=== PATIENT | female | born 1985 | race Caucasian/White ===

== ENCOUNTER 2025-04-03 02:56 | Outpatient (CLI) | payer OTHER, SELFPAY ==
[2025-04-03 11:15] LABS: Abs Immature Grans 0.02 10^3/uL (0.0-0.06); HCT 41.0 % (36.0-46.0); HGB 13.4 g/dL (11.2-15.7); Immature Grans % 0.3 %; MCH 30.5 pg (27.0-33.0); MCHC 32.7 % (32.0-36.0); MCV 93 fL (80-95); MPV 9.5 fL (8.0-11.0); Platelet Count 288 10^3/uL (130-400); RBC 4.39 10^6/uL (3.93-5.22); RDW 11.6 % (11.7-14.6); RDW-SD 39.8 fL; WBC 6.71 10^3/uL (4.4-10.8)
== END 2025-04-03 02:57 | disposition home or self-care (01) ==
LOC: LBO 02:56
PROVIDERS: Visit Provider Obstetrics & Gynecology
DX: Z01.818 Encounter for other preprocedural examination (principal)
CPT/HCPCS: 36415; 86850; 86900; 86901; 85025

== ENCOUNTER 2025-04-04 07:53 | Day surgery (SDC) | payer OTHER, SELFPAY ==
--- NOTE | 2025-04-03 19:35 | W.ANESPRE ---
General Info Date of Service Date Performed: 04/04/25 Height: 5 ft 5 in Weight: 59.874 kg Body Mass Index (BMI): 21.9 Surgical Procedure: Operation Date: 04/04/25 09:10 Proposed Procedure Side Surgeon p Salpingectomy Laparoscopic Bilateral Kika Gaston DO Meds Allergies and Home Medications Allergies Allergy/AdvReac Type Severity Reaction Status Date / Time erythromycin base AdvReac Intermediate Other (See Verified 04/04/25 08:10 Comment) Home Medication ?Medication ?Instructions ?Recorded Bacillus coagulans 10 billion cell 10 cell PO DAILY 09/12/24 capsule,delayed release (Probiotic (B. coagulans)) omega-3 fatty acids 500 mg capsule 500 mg PO DAILY 09/12/24 psyllium husk 0.4 gram capsule 0.4 g PO DAILY 09/12/24 (Daily Fiber) norethindrone 1 mg-ethinyl 1 tab PO DAILY #84 tabs 01/25/25 estradiol 20 mcg (21)-iron 75 mg (7) tablet (Loestrin Fe 10/16 (28-Day)) valacyclovir 1 gram tablet 2,000 mg PO Q12H 03/05/25 Current Visit Medications: Current Medications Generic Name Dose Route Start Last Admin Trade Name Freq PRN Reason Stop Dose Admin Ringer's Solution 1,000 mls @ 80 mls/hr 04/04/25 06:00 IV 04/04/25 23:59 INFUSION NICKI IV Miscellaneous Supplies 1 each 04/04/25 06:00 Iv Access IV 04/04/25 23:59 DIRECTED NICKI Sodium Chloride 0 ml 04/04/25 06:00 Normal Saline Flush 10 Ml Syr IV 04/04/25 23:59 PRN PRN Sodium Chloride 0 ml 04/04/25 06:00 Normal Saline 10 Ml Vial IJ 04/04/25 23:59 DIRECTED PRN Sterile Water 0 ml 04/04/25 06:00 Water,Injection,Sterile 10 Ml Vial IJ 04/04/25 23:59 DIRECTED PRN PFSH Active Problems Active Problems: Problem Status Onset Code Contraceptive management Acute Z30.9 Unspecified eustachian tube disorder, unspecified ear Acute H69.90 Encounter for tubal ligation counseling Acute Z30.8 Medical History Medical History PRP (pityriasis rubra pilaris) Vaginal candidiasis Seasonal allergies Pain in left foot Natural family planning Herpes simplex Surgical History Surgical History History of wisdom tooth extraction Status post repair of complex wound simple repair of superficial wounds of scalp and neck (procedure) 03/31/2020 Tobacco Smoking/Tobacco Use Status: Never Passive smoking exposure: Yes Alcohol Alcohol Intake: current Alcohol intake frequency: holidays/special occasions only Substance Use Substance use: Never Substance use type: does not use Vital Signs and Lab Results Point of Care Results Point of Care Results: Temp Pulse Resp BP Pulse Ox 36.1 C L 66 16 124/85 100 04/04/25 08:00 04/04/25 08:00 04/04/25 08:00 04/04/25 08:00 04/04/25 08:00 Lab Results Blood Type / Crossmatch: Antibody Screen NEGATIVE 04/03/25 Complete Blood Count: WBC, (4.4-10.8) 6.71 10^3/uL 04/03/25, 11:00 RBC, (3.93-5.22) 4.39 10^6/uL 04/03/25, 11:00 Hgb, (11.2-15.7) 13.4 g/dL 04/03/25, 11:00 Hct, (36.0-46.0) 41.0 % 04/03/25, 11:00 Plt Count, (130-400) 288 10^3/uL 04/03/25, 11:00 Anesthesia Assessment and Plan Anesthesia History Personal History: No History of Anesthesia Complications Family History: No Family History of Anesthesia Complications Exercise Tolerance Exercise Tolerance: Metabolic Equivalents>4 Pertinent Negatives Pertinent Negatives: No Symptoms of GERD, No Major Cardiovascular Symptoms or Complaints, No Major Pulmonary Symptoms or Complaints and No History of CVA/TIA Cardiac & Pulmonary Exam Cardiac Exam: Normal S1/S2 Heart Sounds Pulmonary Exam: Clear Bilateral Breath Sounds Implantable Cardiac Device Does patient have a Pacemaker or an ICD?: No Airway Exam Known Difficult Airway: No Mallampati Class: 1 Mouth Opening: Normal (> 3cm) Thyromental Distance: Greater than 3 cm Neck Range of Motion: Full ROM Neck Circumference: Normal Teeth Condition: Normal Dentition ASA Classification ASA Score: ASA 2 Emergency Case?: No NPO Status NPO Status: NPO Clears >2 hours, Solids >8 hours Status Status: Negative HCG Anesthesia Plan Resuscitation Status: Full Code Anesthesia Technique: General Anesthesia Airway Planned: Endotracheal Tube Monitors Used: Standard Monitors Preoperative Comments:: 39 yo female for lap slaping. Sig PMHx: never smoker, occ EtOH.
[2025-04-04] VITALS (24 sets, daily range): BP systolic 100–124; BP diastolic 57–85; PULSE 41–66; RESP 12–26; TEMP 36.1–36.6; O2SAT 97–100; BMI 21.9
[2025-04-04] MEDS: Lactated Ringers 1,000 ML 80 ML IV (08:29)
--- NOTE | 2025-04-04 09:34 | FALL_PTH ---
PATIENT: Lisa Macedo LOC: [facility] U#:[id number] AGE/SX: 39/F ROOM: RE04/04/[address]: Kika Gaston DO : 1985 BED: DIS: 04/04/2025 SPEC #: [id number] RECD: 04/04/25 12:00 STATUS: MICHAEL RE #: [id number] ABDIRAHMAN: 04/04/25 09:[address]: Kika Gaston DEPT: Surgical Specimen RECD BY: Charisse Chong ENTERED: 04/04/25 12:01 SP TYPE: Fall OTHR DR: HERMINIO Mathews Tissues: 1 - FALLOPIAN TUBE (STERILIZATION) 2 - FALLOPIAN TUBE (STERILIZATION) Procedures: GROSS AND MICRO LEVEL 2 Comments: [id number]
[2025-04-04] MEDS: Bupivacaine 0.25% Pres-Free 30 ML VIAL (09:44)
--- NOTE | 2025-04-04 09:59 | W.PM.OP ---
Operative Note Operative Note PRE-OP DIAGNOSIS: Undesired fertility POST-OP DIAGNOSIS: same PROCEDURE: Laparoscopic bilateral salpingectomy SURGEON: Kika Gaston ASSISTING SURGEON: Lisa Mcgovern ANESTHESIA TYPE: Local By Surgeon and General LMA/ETT Refer to Anesthesia Record ESTIMATED BLOOD LOSS: 10 PATHOLOGY: other (1. Right fallopian tube 2. Left fallopian tube) COMPLICATIONS: None Patient was transported to: PACU Patient's condition: stable Indications: Undesired fertility Findings: Normal-appearing tubes, ovaries, uterus. Small, 2 cm posterior fundal uterine fibroid, subserosal Procedure Description: After full informed consent was obtained and negative status verified, patient taken the operating suite with an IV running. She was placed in dorsal supine position and general anesthesia administered via general endotracheal intubation without difficulty. She was placed in the modified dorsolithotomy position and prepped and draped in usual sterile fashion. A timeout was held. She had pneumatic compression stockings for DVT prophylaxis and no antibiotic prophylaxis was necessary. Exam under anesthesia revealed a uterus that was midline and mobile. There was no evidence of adnexal mass. At this point attention was turned to the vaginal vault where speculum inserted and cervix identified. From The Bench uterine manipulator was placed for uterine manipulation throughout the procedure. At this point attention was turned to the abdomen where a smal infraumbilical skin incision was made after infiltration of Piero percent Marcaine. The anterior abdominal wall was elevated and a Veress needle inserted into the abdomen. Pneumoperitoneum was created with a maximum pressure of 15 mmHg of CO2 gas. At this point, under direct visualization with a 10 mm bladeless sleeve and trocar, the abdomen was entered and trocar placed. A 2nd and 3rd right and left lower quadrant trocar site was placed after infiltration with quarter percent Marcaine under direct visualization. The uterus was then elevated, abdomen inspected and found to be free of disease and trauma. There is noted to be the previously mentioned 2 cm posterior fundal fibroid. The right fallopian tube was then elevated cautery transected and removed from the abdomen. Pedicle was noted to be hemostatic. Similar procedure was carried out on the left fallopian tube which was elevated and cautery transected. It was also removed from the abdomen. On low pressure, pedicles again reinspected and noted to be hemostatic. At this point point the procedure was terminated. Pneumoperitoneum released and trocars removed from the abdomen. The infrarenal: Fascial incision was closed using 0 Vicryl suture in a simple interrupted fashion. Skin edges were reapproximated with 4 undyed Monocryl and Steri-Strips and sterile dressing was placed. Hulka uterine manipulator was removed and the patient was returned to the dorsal supine position. She woke from anesthesia without difficulty and was taken the recovery in stable condition. Complications: None apparent Fluids: Crystalloid per anesthesia Pathology: 1. Right fallopian tube 2. Left fallopian tube EBL: 10 mL Date of Procedure: 04/04/25
[2025-04-04] MEDS: Ketorolac 15 MG/ML VIAL IVP (10:14)
--- NOTE | 2025-04-04 10:20 | W.ANESPOSTOP ---
Postoperative Evaluation Date, Time and Location Date Performed: 04/04/25 Time Performed: 10:20 Patient Location: PACU Vital Signs Most Recent Imported Vital Signs: Most Recent Vital Signs Temp Pulse Resp BP Pulse Ox 36.6 C 49 L 24 104/66 100 04/04/25 10:08 04/04/25 10:16 04/04/25 10:16 04/04/25 10:15 04/04/25 10:16 Pain Score Most Recent Pain Score: Most Recent Pain Score Pain Level 6 04/04/25 10:13 Assessment Mental Status: Awake (Alert & Oriented to Patient Baseline) Airway and Respiratory Function: Patent airway with normal (patient baseline) respiratory exam Cardiovascular Function: Hemodynamically Stable Hydration Status: Adequately Hydrated Nausea & Vomiting: No Nausea or Vomiting Pain: Pain is tolerable per patient Peripheral Nerve Block: Patient did not receive a nerve block
[2025-04-04] MEDS: fentaNYL 100 MCG/2 ML VIAL IVP (10:32)
== END 2025-04-04 11:40 | disposition home or self-care (01) ==
PROVIDERS: PCP Physician Assistant; Visit Provider Obstetrics & Gynecology
PROC: (CPT 58661; principal; 2025-04-04 09:00)
DX: Z30.2 Encounter for sterilization (principal)
CPT/HCPCS: 58661; 81025; 88302; J0131; J0665; J1100; J1885; J2405; J2704; J3010; J3475